=== PATIENT | male | born 1960 | race African-American/Black ===

== ENCOUNTER 2019-11-01 11:12 | Emergency (ER) | payer SELFPAY ==
[2019-11-01 11:57] VITALS: BP 125/58; PULSE 57; TEMP 98.6; BMI 28.8
--- NOTE | 2019-11-01 12:10 | PDOC ---
History of Present Illness - General Chief Complaint: Abscess Boil Stated Complaint: WOUND CARE Time Seen by Provider: 11/01/19 12:10 History Source: Patient - History of Present Illness Initial Comments: 11/01/19 13:30 Chief complaint: Abscess to the back Patient is a healthy 59-year-old male who developed abscess to the back over the past week. No fever. Patient states he had an abscess to the same area over a year ago which was drained, he followed up with the surgeon. GENERAL/CONSTITUTIONAL: No fever, weakness. dizziness HEAD, EYES, EARS, NOSE AND THROAT: No change in vision. No ear pain or discharge. No sore throat. CARDIOVASCULAR: No chest pain RESPIRATORY: No shortness of breath or cough GASTROINTESTINAL: No pain, nausea, vomiting, diarrhea or constipation GENITOURINARY: No dysuria MUSCULOSKELETAL: No neck or back pain SKIN: No rash, + abscess NEUROLOGIC: No headache, vertigo, loss of consciousness, or loss of sensation. GENERAL: The patient is awake, alert, and fully oriented, in no acute distress. HEAD: Normal with no signs of trauma. EYES: Pupils equal, round and reactive to light, sclera anicteric, conjunctiva clear. ENT: pharynx: no erythema, no exudate, uvula midline NECK: supple CHEST: clear, nontender, rr ABD: soft, nontender BACK: + 6 cm x 4 cm raised fluctuant mildly erythemic area without surrounding cellulitis, tender. Otherwise no tenderness or signs of injury EXTREMITIES: Normal range of motion, no edema. NEUROLOGICAL: Normal speech, normal gait. SKIN: Warm, Dry Past History - Past Medical History Allergies/Adverse Reactions: Allergies Allergy/AdvReac Type Severity Reaction Status Date / Time No Known Allergies Allergy Verified 11/01/19 11:55 Home Medications: Ambulatory Orders Cephalexin [Keflex] 1,000 mg PO BID #28 capsule 11/01/19 Sulfamethoxazole/Trimethoprim [Bactrim Ds Tablet] 1 each PO BID #14 tablet 11/01/19 - Psycho Social/Smoking Cessation Hx Smoking History: Never smoked Hx Alcohol Use: No Drug/Substance Use Hx: No *Physical Exam - Vital Signs Last Vital Signs Temp Pulse Resp BP Pulse Ox 98.6 F 57 L 18 125/58 L 99 11/01/19 11:55 11/01/19 11:55 11/01/19 11:55 11/01/19 11:55 11/01/19 11:55 Procedures - Incision and Drainage I&D Site: Bilateral: Other (Abscess, upper mid back) Betadine cleansed: Yes Anesthesia: 1% Lidocaine Blade Size: 11 Iodinated Packin/2 in Plain Packing: Yes Complications: none Dressing: Yes Medical Decision Making - Medical Decision Making 11/01/19 13:32 Discussed issues, findings, results, applicable medications and treatments and follow-up. All these were understood and all questions were answered Discharge - Discharge Information Problems reviewed: Yes Clinical Impression/Diagnosis: Abscess of back Condition: Stable Disposition: HOME - Admission No - Additional Discharge Information Prescriptions: Sulfamethoxazole/Trimethoprim [Bactrim Ds Tablet] 1 each PO BID #14 tablet Cephalexin [Keflex] 1,000 mg PO BID #28 capsule - Follow up/Referral Referrals: Lady Rockwell MD [Primary Care Provider] - - Patient Discharge Instructions Patient Printed Discharge Instructions: DI for Incision and Drainage of a Skin Abscess Additional Instructions: Leave packing in place, you may shower but be careful not to have the packing come out. Take the Bactrim and the Keflex, both twice a day until finished Change bandage as needed Return in 2 days to have packing removed and have reevaluation Return sooner if fever or feeling sicker - Post Discharge Activity
== END 2019-11-01 12:55 | disposition home or self-care (01) ==
LOC: JERFT 11:12
PROC: 0H96XZZ Drainage of Back Skin, External Approach (ICD-10-PCS; principal; 2019-11-01)
DX: L02.212 Cutaneous abscess of back [any part, except buttock and flank] (principal)
CPT/HCPCS: 99283-25

== ENCOUNTER 2019-11-03 10:57 | Emergency (ER) | payer SELFPAY ==
[2019-11-03 11:00] VITALS: BP 114/76; PULSE 84; TEMP 98.2; BMI 28.8
--- NOTE | 2019-11-03 11:26 | PDOC ---
Suture Removal/Wound Check HPI - History of Present Illness Chief Complaint: Revisit,Wound Recheck Stated Complaint: F/U FOR ABCESS Time Seen by Provider: 11/03/19 11:02 Past History - Past Medical History Allergies/Adverse Reactions: Allergies Allergy/AdvReac Type Severity Reaction Status Date / Time No Known Allergies Allergy Verified 11/03/19 10:57 Home Medications: Ambulatory Orders Cephalexin [Keflex] 1,000 mg PO BID #28 capsule 11/01/19 Sulfamethoxazole/Trimethoprim [Bactrim Ds Tablet] 1 each PO BID #14 tablet 11/01/19 COPD: No Diabetes: Yes - Immunization History Immunization Up to Date: Yes - Psycho Social/Smoking Cessation Hx Smoking History: Current some day smoker Have you smoked in the past 12 months: Yes Information on smoking cessation initiated: No Hx Alcohol Use: No Drug/Substance Use Hx: No *Physical Exam - Vital Signs Last Vital Signs Temp Pulse Resp BP Pulse Ox 98.2 F 84 18 114/76 99 11/03/19 10:58 11/03/19 10:58 11/03/19 10:58 11/03/19 10:58 11/03/19 10:58 Discharge - Discharge Information Problems reviewed: Yes Clinical Impression/Diagnosis: Encounter for wound re-check Condition: Good Disposition: HOME - Follow up/Referral - Patient Discharge Instructions Patient Printed Discharge Instructions: DI for Wound Infection Additional Instructions: Tomorrow please remove bandage and take a hot shower allowing constant hot water to area for the next 15 minutes then may cleanse with soap and water again rinsing. If area continues to leak a little, have someone put a gauze to area. Repeat this process 3 times a day for the next 2 days. Observe for any infection. Also check your glucose routinely - Post Discharge Activity
--- NOTE | 2019-11-03 11:47 | PDOC ---
Suture Removal/Wound Check HPI - History of Present Illness Chief Complaint: Revisit,Wound Recheck Stated Complaint: F/U FOR ABCESS Time Seen by Provider: 11/03/19 11:02 History Source: Yes: Patient Exam Limitations: Yes: No Limitations Treated at: [facility] ED - Previous ED Treatment Type of procedure performed on last visit: Yes: I&D of Abscess Tetanus Immunization: Yes: Up to Date Past History - Travel Traveled outside of the country in the last 30 days: No Close contact w/someone who was outside of country & ill: No - Past Medical History Allergies/Adverse Reactions: Allergies Allergy/AdvReac Type Severity Reaction Status Date / Time No Known Allergies Allergy Verified 11/03/19 10:57 Home Medications: Ambulatory Orders Cephalexin [Keflex] 1,000 mg PO BID #28 capsule 11/01/19 Sulfamethoxazole/Trimethoprim [Bactrim Ds Tablet] 1 each PO BID #14 tablet 11/01/19 COPD: No Diabetes: Yes - Immunization History Immunization Up to Date: Yes - Psycho Social/Smoking Cessation Hx Smoking History: Current some day smoker Have you smoked in the past 12 months: Yes Information on smoking cessation initiated: No Hx Alcohol Use: No Drug/Substance Use Hx: No Patient Lives Alone: No Lives with/in: spouse/SO Suture Removal/Wound Check PE - Physical Exam Laceration/Wound Check Symptoms: reports: None Current Severity Level: None Maximum Severity Level: None Pain Localization: None *Review of Systems - Review of Systems Able to Perform ROS?: Yes Constitutional: Yes: Symptoms Reported HEENTM: No: Symptoms Reported Respiratory: No: Symptoms reported Integumentary: Yes: Other Neurological: No: Symptoms reported Hematologic/Lymphatic: No: Symptoms Reported *Physical Exam - Vital Signs Last Vital Signs Temp Pulse Resp BP Pulse Ox 98.2 F 84 18 114/76 99 11/03/19 10:58 11/03/19 10:58 11/03/19 10:58 11/03/19 10:58 11/03/19 10:58 - Physical Exam General Appearance: Yes: Nourished, Appropriately Dressed. No: Apparent Distress HEENT: negative: Pale Conjunctivae Neck: positive: Supple. negative: Lymphadenopathy (R), Lymphadenopathy (L) Respiratory/Chest: positive: Lungs Clear, Normal Breath Sounds. negative: Respiratory Distress, Accessory Muscle Use Cardiovascular: positive: Regular Rhythm, Regular Rate. negative: Murmur Gastrointestinal/Abdominal: negative: Distended Integumentary: positive: Other (No erythema no fluctuance no increased warmth ) Neurologic: positive: Motor Strength 5/5 (Ambulatory) Medical Decision Making - Medical Decision Making 11/03/19 11:48 Chief complaint: Here for wound check. Patient had I&D done 48 hours ago. Patient states glucose this morning was 124. Patient has otherwise asymptomatic. Exam: Packing removed without difficulty surrounding skin intact. Area redressed. Patient given post I&D instructions. Discharge - Discharge Information Problems reviewed: Yes Clinical Impression/Diagnosis: Encounter for wound re-check Condition: Good Disposition: HOME - Follow up/Referral - Patient Discharge Instructions Patient Printed Discharge Instructions: DI for Wound Infection Additional Instructions: Tomorrow please remove bandage and take a hot shower allowing constant hot water to area for the next 15 minutes then may cleanse with soap and water again rinsing. If area continues to leak a little, have someone put a gauze to area. Repeat this process 3 times a day for the next 2 days. Observe for any infection. Also check your glucose routinely - Post Discharge Activity
== END 2019-11-03 11:29 | disposition home or self-care (01) ==
LOC: JERFT 10:57
DX: Z48.00 Encounter for change or removal of nonsurgical wound dressing (principal)
CPT/HCPCS: 99281-25